=== PATIENT | female | born 1945 | race Hispanic/Latino ===

== ENCOUNTER → 2017-12-31 | Outpatient (CLI) | payer OTHER | END | disposition home or self-care (01) | LOC: RAH 15:01 | PROVIDERS: ATTEND Family Medicine | DX: K57.30 Diverticulosis of large intestine without perforation or abscess without bleeding (principal); K76.0 Fatty (change of) liver, not elsewhere classified; R91.1 Solitary pulmonary nodule; I70.0 Atherosclerosis of aorta | CPT/HCPCS: 74176 ==

== ENCOUNTER → 2022-07-27 | Outpatient (CLI) | payer OTHER ==
[~2022-07-27] MED LIST: CALC1TAB2 PO; ERGO500093 PO; GLIP5TAB11 PO; LISI10TA24 PO; METF-527 PO; MVIT PO; OMEP40CA21 PO; OXYB10TA30 PO; PRAV40TA3 PO; SITA100T12 PO
== END | disposition home or self-care (01) ==
LOC: RAH 13:40
PROVIDERS: ATTEND Orthopaedic Surgery
DX: M17.12 Unilateral primary osteoarthritis, left knee (principal); M85.88 Other specified disorders of bone density and structure, other site
CPT/HCPCS: 73700

== ENCOUNTER 2022-08-01 05:57 | Observation (INO) | payer OTHER ==
[2022-07-27 15:37] LABS: BASOPHILS % (AUTO) 0.5 % (0.0-5.0); EOSINOPHILS % (AUTO) 1.9 % (0.0-8.0); HEMATOCRIT 40.4 % (36-48); LYMPHOCYTES % (AUTO) 32.5 % (21.0-51.0); MEAN CORPUSCULAR HEMOGLOBIN 30.6 pg (27.0-33.0); MEAN CORPUSCULAR HGB CONC 32.7 g/dL (32.0-36.0); MEAN CORPUSCULAR VOLUME 93.5 fL (79-99); MONOCYTES % (AUTO) 7.3 % (3.0-13.0); NEUTROPHILS % (AUTO) 57.6 % (40.0-77.0); PLATELET COUNT (AUTO) 289 K/uL (130-400); RED BLOOD CELL COUNT(AUTO) 4.32 MIL/uL (4.00-5.50); RED CELL DISTRIBUTION WIDTH 13.7 % (11.0-15.5); WHITE BLOOD COUNT (AUTO) 8.4 K/uL (4.8-10.8)
[2022-07-27 15:46] LABS: CREATININE 0.5 mg/dL (0.5-1.5); POTASSIUM 4.3 mmol/L (3.5-5.1)
[2022-07-27 15:49] LABS: INR 0.93 (0.85-1.15); PROTHROMBIN TIME 9.8 SEC (9.6-11.6)
[2022-07-27 15:51] LABS: PARTIAL THROMBOPLASTIN TIME 25.9 SEC (26.3-35.5)
[2022-07-27 16:26] VITALS: BP 198/65
[2022-08-01] VITALS (25 sets, daily range): BP systolic 104–161; BP diastolic 46–91
[~2022-08-01] VITALS: Ht 157.5 cm; Wt 62.8 kg
[2022-08-01] MEDS ORDERED: 0.9%NACL 1000ML 1,000 ML IV ONE (06:22)
[2022-08-01] MEDS: CEFAZOLIN SODIUM 2 GM VIAL ONE ×2 (06:36→08:30)
[2022-08-01] MEDS ORDERED: SUCCINYLCHOLINE 200MG/10ML SYR ONE (07:38)
[2022-08-01] MEDS ORDERED: LIDOCAINE PF 100MG/5ML (2%) SYRINGE 5ML ONE (07:38)
[2022-08-01] MEDS ORDERED: ONDANSETRON 4MG INJ ONE (07:38)
[2022-08-01] MEDS ORDERED: GLYCOPYRROLATE 1 MG/5 ML SYRINGE ONE (07:39)
[2022-08-01] MEDS ORDERED: MIDAZOLAM HCL 1 MG/ML 2ML VIAL ONE (07:39)
[2022-08-01] MEDS ORDERED: NEOSTIGMINE 5MG/5ML SYR IV ONE (07:39)
[2022-08-01] MEDS ORDERED: FENTANYL CITRATE PF 50 MCG/1 ML 2ML VIAL ONE ×2 (07:39→09:06)
[2022-08-01] MEDS ORDERED: PROPOFOL 10 MG/ML 20ML VIAL IV ONE (07:39)
[2022-08-01] MEDS ORDERED: ROCURONIUM 10MG/1ML SYR 10 MG/ML ML ONE (07:39)
[2022-08-01] MEDS ORDERED: ONDANSETRON 4MG INJ IVP PRN (08:30)
[2022-08-01] MEDS: 0.9%NACL 1000ML 1,000 ML IV SCH ×2 (08:30→18:13)
[2022-08-01] MEDS ORDERED: POTASSIUM CHLORIDE 10% ELIXIR 20 MEQ/15 ML UDCUP PO PRN (08:30)
[2022-08-01] MEDS ORDERED: POTASSIUM CHLORIDE 20MEQ/100ML 100 ML IV PRN (08:30)
[2022-08-01] MEDS ORDERED: HYDROCODONE/ACETAMINOPHEN 5/325 MG TAB PO PRN (08:30)
[2022-08-01] MEDS ORDERED: TRANEXAMIC ACID 1000MG/10ML ONE (08:31)
[2022-08-01] MEDS ORDERED: EPHEDRINE SULFATE 50 MG/ML AMPULE ONE (08:57)
[2022-08-01] MEDS: LINAGLIPTIN 5 MG TABLET PO SCH (09:00)
[2022-08-01] MEDS ORDERED: PANTOPRAZOLE 40 MG TAB DR PO PRN (09:00)
[2022-08-01] MEDS: FAMOTIDINE 20MG TAB PO SCH ×2 (09:00→21:26)
[2022-08-01] MEDS: POLYETHYLENE GLYCOL 3350 17 GM POWD.PACK PO SCH (09:00)
[2022-08-01] MEDS: LISINOPRIL 10 MG TABLET PO SCH (09:00)
[2022-08-01] MEDS ORDERED: MEPERIDINE-PF 25 MG/ML SYG ONE ×2 (11:05→12:45)
[2022-08-01] MEDS ORDERED: ROPIVACAINE 0.5% 5MG/ML 30ML IJ ONE (11:24)
[2022-08-01] MEDS ORDERED: LIDOCAINE 2%-EPI 1:200,000 20 ML VIAL IJ ONE (11:25)
[2022-08-01] MEDS: IBUPROFEN 800MG + NS 250ML IV SCH ×2 (11:30→19:43)
[2022-08-01] MEDS: ACETAMINOPHEN 1,000 MG/100 ML VIAL IV SCH ×5 (12:58→23:15)
[2022-08-01] MEDS: CEFAZOLIN SODIUM 2 GM VIAL IVPB SCH ×2 (14:54→21:29)
[2022-08-01] MEDS: HYDROCODONE/ACETAMINOPHEN 10/325 MG TAB PO PRN (16:24)
[2022-08-01] MEDS: METFORMIN HCL 500 MG TABLET PO SCH (17:23)
[2022-08-01] MEDS: OXYBUTYNIN 5 MG TAB.SR.24H PO SCH (21:25)
[2022-08-01] MEDS: GLIPIZIDE 5 MG TABLET PO SCH (21:26)
[2022-08-02] VITALS: BP 111/60
[2022-08-02] MEDS: IBUPROFEN 800MG + NS 250ML IV SCH (02:46)
[2022-08-02] MEDS: 0.9%NACL 1000ML 1,000 ML IV SCH (03:26)
[2022-08-02 04:00] VITALS: BP 131/65
[2022-08-02 04:36] LABS: HEMATOCRIT 29.2 % (36-48); MEAN CORPUSCULAR HEMOGLOBIN 30.9 pg (27.0-33.0); MEAN CORPUSCULAR HGB CONC 32.9 g/dL (32.0-36.0); MEAN CORPUSCULAR VOLUME 93.9 fL (79-99); RED BLOOD CELL COUNT(AUTO) 3.11 MIL/uL (4.00-5.50); RED CELL DISTRIBUTION WIDTH 13.7 % (11.0-15.5); WHITE BLOOD COUNT (AUTO) 11.4 K/uL (4.8-10.8)
[2022-08-02 04:46] LABS: CREATININE 0.5 mg/dL (0.5-1.5); POTASSIUM 3.2 mmol/L (3.5-5.1)
[2022-08-02] MEDS: ACETAMINOPHEN 1,000 MG/100 ML VIAL IV SCH (05:31)
[2022-08-02 08:00] VITALS: BP 127/57
[2022-08-02] MEDS: POLYETHYLENE GLYCOL 3350 17 GM POWD.PACK PO SCH (08:53)
[2022-08-02] MEDS: LINAGLIPTIN 5 MG TABLET PO SCH (08:54)
[2022-08-02] MEDS: FAMOTIDINE 20MG TAB PO SCH ×2 (08:55→20:38)
[2022-08-02] MEDS: LISINOPRIL 10 MG TABLET PO SCH (08:55)
[2022-08-02] MEDS: ASPIRIN 81 MG EC TAB PO SCH ×2 (08:55→20:38)
[2022-08-02] MEDS: METFORMIN HCL 500 MG TABLET PO SCH ×2 (08:56→16:50)
[2022-08-02] MEDS: MORPHINE 4 MG SYG IVP PRN ×3 (08:59→22:45)
[2022-08-02] MEDS: KCL 20 MEQ ERTAB PO PRN ×2 (09:14→18:35)
[2022-08-02 12:00] VITALS: BP 124/53
[2022-08-02 16:00] VITALS: BP 144/69
[2022-08-02] MEDS: HYDROCODONE/ACETAMINOPHEN 10/325 MG TAB PO PRN (16:50)
[2022-08-02 20:08] VITALS: BP 120/56
[2022-08-02] MEDS: SULFAMETHOX-TMP DS 800/160 TAB PO SCH (20:38)
[2022-08-02] MEDS: OXYBUTYNIN 5 MG TAB.SR.24H PO SCH (20:38)
[2022-08-02] MEDS: GLIPIZIDE 5 MG TABLET PO SCH (20:38)
[2022-08-03] VITALS: BP 133/62
[2022-08-03] MEDS: HYDROCODONE/ACETAMINOPHEN 10/325 MG TAB PO PRN ×3 (03:15→19:33)
[2022-08-03 03:36] VITALS: BP 141/66
[2022-08-03 08:00] VITALS: BP 130/58
[2022-08-03] MEDS: METFORMIN HCL 500 MG TABLET PO SCH ×2 (08:12→16:30)
[2022-08-03] MEDS: SULFAMETHOX-TMP DS 800/160 TAB PO SCH ×2 (08:13→19:33)
[2022-08-03] MEDS: ASPIRIN 81 MG EC TAB PO SCH ×2 (08:13→19:32)
[2022-08-03] MEDS: FAMOTIDINE 20MG TAB PO SCH ×2 (08:13→19:32)
[2022-08-03] MEDS: POLYETHYLENE GLYCOL 3350 17 GM POWD.PACK PO SCH (08:14)
[2022-08-03] MEDS: MORPHINE 4 MG SYG IVP PRN ×2 (08:14→12:21)
[2022-08-03] MEDS: LISINOPRIL 10 MG TABLET PO SCH (08:24)
[2022-08-03] MEDS: LINAGLIPTIN 5 MG TABLET PO SCH (08:25)
[2022-08-03 11:37] VITALS: BP 119/63
[2022-08-03 16:35] VITALS: BP 105/49
[2022-08-03] MEDS ORDERED: BISACODYL 10 MG SUPP.RECT RC ONE (17:07)
[2022-08-03] MEDS: BISACODYL 10 MG SUPP.RECT RC PRN ×2 (17:08→17:49)
[2022-08-03] MEDS: OXYBUTYNIN 5 MG TAB.SR.24H PO SCH (19:32)
[2022-08-03] MEDS: GLIPIZIDE 5 MG TABLET PO SCH (19:33)
== END 2022-08-03 20:22 ==
LOC: DAH 05:57 → DAHIP 05:58 → 4BH 13:35
PROVIDERS: ADMIT Orthopaedic Surgery; ATTEND Orthopaedic Surgery
DX: M17.12 Unilateral primary osteoarthritis, left knee (principal); Z20.822 Contact with and (suspected) exposure to COVID-19; S83.01 Lateral subluxation and dislocation of patella; I10 Essential (primary) hypertension; E11.9 Type 2 diabetes mellitus without complications; Z90.49 Acquired absence of other specified parts of digestive tract; Z79.899 Other long term (current) drug therapy; Z98.890 Other specified postprocedural states
CPT/HCPCS: 27447; S2900; 36415; 73562; 80048; 82948; 85025; 85027; 85610; 85730; 87426; 87641; 93005; 96365; 96366; 96367; 96375; 96376; 97039; G0378; J0330; J1741; J2001; J2175; J2250; J2270; J2405; J2704; J2710; J2795; J3010; J3490; J7030

== ENCOUNTER → 2023-09-10 | Outpatient (CLI) | payer OTHER ==
[~2023-09-10] MED LIST changes: -GLIP5TAB11 PO; +GLIP5TAB15 PO
== END | disposition home or self-care (01) ==
LOC: RAH 12:39
PROVIDERS: ATTEND Orthopaedic Surgery
DX: M17.11 Unilateral primary osteoarthritis, right knee (principal); M16.11 Unilateral primary osteoarthritis, right hip; M85.89 Other specified disorders of bone density and structure, multiple sites; M25.761 Osteophyte, right knee; M25.861 Other specified joint disorders, right knee; M77.31 Calcaneal spur, right foot
CPT/HCPCS: 73700

== ENCOUNTER → 2024-11-24 | Outpatient (CLI) | payer OTHER ==
[~2024-11-24] MED LIST changes: -PRAV40TA3 PO; +PRAV40TA62 PO
--- NOTE | 2024-11-25 06:34 | HMCIMG ---
EXAMINATION: ULTRASOUND OF THE RETROPERITONEUM. CLINICAL HISTORY: Incomplete bladder emptying. COMPARISON: None. TECHNIQUE: Real-time grayscale ultrasound images of the kidneys. FINDINGS: The kidneys are normal in caliber, the right kidney measures 9.5 x 5.5 x 5.0 cm and the left kidney measures 10.2 x 6.0 x 5.1 cm in its craniocaudal, AP, and transverse dimensions respectively. There is normal renal cortical thickness, and cortical echogenicity. There is no renal calculus bilaterally. There is mild bilateral hydronephrosis. The urinary bladder is normal in caliber and wall thickness (0.3 cm). There are no calculi in the urinary bladder. Pre-void volume is 274 cc and post-void volume is 55 cc. IMPRESSION: Mild bilateral hydronephrosis. Significant post-void residue. Recommend CT abdomen and pelvis with urography. /Merlene
== END | disposition home or self-care (01) ==
LOC: RAH 14:12
PROVIDERS: ATTEND Urology
DX: N13.30 Unspecified hydronephrosis (principal); R39.14 Feeling of incomplete bladder emptying
CPT/HCPCS: 76770